=== PATIENT | male | born 1990 | race Caucasian/White ===

== ENCOUNTER 2020-09-20 10:46 | Emergency (ER) | payer OTHER ==
[~2020-09-20] VITALS: Ht 185.4 cm; Wt 65.8 kg
[2020-09-20] MEDS ORDERED: FLOMAX0.4 MG PO (12:01)
[2020-09-20] MEDS ORDERED: OXYCODONE HCL5 MG PO (12:01)
== END 2020-09-20 12:10 | disposition home or self-care (01) ==
LOC: ED 10:46
DX: N23 Unspecified renal colic (principal); G43.909 Migraine, unspecified, not intractable, without status migrainosus; Z88.5 Allergy status to narcotic agent; Z88.8 Allergy status to other drugs, medicaments and biological substances
CPT/HCPCS: 80053; 81001; 85025; 96374; 96375; 99284-25; J1885; J2405; J7030